=== PATIENT | female | born 1990 | race African-American/Black ===

== ENCOUNTER 2018-11-10 14:59 | Emergency (ER) | payer MEDICAID ==
[~2018-11-10] VITALS: Ht 154.9 cm; Wt 86.2 kg
[2018-11-10 15:07] VITALS: BP 153/87
--- NOTE | 2018-11-10 16:07 | NUR ---
PT AMBULATED TO BED 05.
--- NOTE | 2018-11-10 16:08 | NUR ---
BIB SELF. AAOX4. C/O CELLULITIS ON THE BACK OF THE NECK X 2 WEEKS. PT WENT TO PRIMARY PHYSICIAN ON 11/08 AND WAS PRESCRIBED ANTIBIOTIC SULFAMETHOXAZOLE-TMP DS. PT STATES CLEAR DRAINAGE NOTED SUNDAY. OPEN WOUND TO THE BACK OF THE NECK. PT STATES NO PAIN. AFEBRILE. DENIES N/V/D. HOB UP. BED SIDE RAILS UP X1. ON LOW BED POSITION, LOCKED. ER MADE AWARE OF PT STATUS.
--- NOTE | 2018-11-10 18:27 | NUR ---
Dr. Marie evaluating patient at bedside.
[2018-11-10] MEDS ORDERED: NEOMYCIN/POLYMYXIN/BACITRACIN 0.9 GM/1 PKT TP ONE (18:35)
[2018-11-10] MEDS ORDERED: CLINDAMYCIN 600 MG/4 ML VIAL IM ONE (18:35)
[2018-11-10] MEDS ORDERED: KETOROLAC 60 MG/2 ML VIAL IM ONE (18:35)
[2018-11-10] MEDS ORDERED: LEVOFLOXACIN 500 MG TAB PO ONE (18:35)
--- NOTE | 2018-11-10 18:55 | NUR ---
WOUND CULTURE OBTAINED ORDERED TO THE BACK OF NECK.
[2018-11-10 19:12] VITALS: BP 142/94
--- NOTE | 2018-11-10 19:12 | NUR ---
DISCHARGE INSTRUCTIONS. GIVEN. NO DRAINAGE. NO ABSCESS PAIN. INSTRUCTED ON AFTER CARE AND WHEN TO F/U WITH PCP. GIVEN RX FOR MOTRINE AND CLINDAMYCIN. SIDE EFFECTS EXPLAINED. PT VERBALLIZED UNDERSTANDING OF DC INSTRUCTION. ALL QUESTIONS ANSWERED.
== END 2018-11-10 19:12 | disposition home or self-care (01) ==
LOC: MED 14:59
DX: L02.13 Carbuncle of neck (principal); E11.9 Type 2 diabetes mellitus without complications
CPT/HCPCS: 87070; 87075; 87186; 87205; 96372; 99283; J1885; J3490

== ENCOUNTER 2019-10-10 12:06 | Emergency (ER) | payer MEDICAID ==
[~2019-10-10] VITALS: Ht 154.9 cm; Wt 91.2 kg
[2019-10-10 12:25] VITALS: BP 120/90
[2019-10-10 13:20] VITALS: BP 120/90
== END 2019-10-10 13:21 | disposition home or self-care (01) ==
LOC: MED 12:06
DX: B34.9 Viral infection, unspecified (principal); E11.9 Type 2 diabetes mellitus without complications; I10 Essential (primary) hypertension
CPT/HCPCS: 99283

== ENCOUNTER 2020-01-26 21:42 | Emergency (ER) | payer MEDICAID, SELFPAY ==
[~2020-01-26] VITALS: Ht 154.9 cm; Wt 91.2 kg
[2020-01-26 21:48] VITALS: BP 149/92
--- NOTE | 2020-01-26 21:55 | NUR ---
PT AMBULATED TO BED 04 WITH STEADY GAIT.
--- NOTE | 2020-01-26 21:59 | NUR ---
ASKED PT FOR URINE SAMPLE, SHE STATED SHE WENT TO THE BATHROOM BEFORE COMING TO HOSPITAL AND CANNOT URINATE NOW AND WILL TRY IN A FEW MINS TO PROVIDE SAMPLE
--- NOTE | 2020-01-26 22:00 | NUR ---
PT RESTING IN BED IN POSITION OF COMFORT, BED LOW AND LOCKED, 2 SIDERAILS UP, VSS,WILL CONTINUE TO MONITOR
--- NOTE | 2020-01-26 22:39 | NUR ---
URINE DIP AND PREG DONE AND URINE SAMPLE LEFT IN DIRTY UTILITY FOR LAB TO TV HOST
--- NOTE | 2020-01-26 22:48 | NUR ---
29 Y/O FEMALE C/O BLOOD SUGAR IN THE HIGH 50'S THIS MORNING AND PT ATE HALF A BANANA, WENT TO BED FOR ABOUT AN HOUR AND RE TOOK BLOOD SUGAR AND IT WAS IN THE HIGH 60'S; C/O FEELING TIRED/SLEEPY ALL DAY. FINGERS AND TOES COLD; LACK ENERGY; DENIES PAIN ; PMH:DMI/ANXIETY NKA
--- NOTE | 2020-01-26 23:00 | NUR ---
LAB AT BEDSIDE
--- NOTE | 2020-01-26 23:00 | NUR ---
PT PLACED IN GOWN
[2020-01-26 23:10] LABS: APPEARANCE,URINE CLEAR (CLEAR); BILIRUBIN,URINE NEGATIVE (NEGATIVE); BLOOD, URINE 1+ (NEGATIVE); COLOR,URINE YELLOW (YELLOW); LEUKOCYTE ESTERASE ,URINE NEGATIVE (NEGATIVE); NITRITE, URINE NEGATIVE (NEGATIVE); UGLUCOSE NEGATIVE (NEGATIVE)
--- NOTE | 2020-01-26 23:10 | NUR ---
PT RESTING IN BED IN POSITION OF COMFORT, BED LOW AND LOCKED, 2 SIDERAILS UP, VSS,WILL CONTINUE TO MONITOR
--- NOTE | 2020-01-26 23:13 | NUR ---
ORAL COVID SWAB DONE AND HANDED TO LAB PERSON
[2020-01-26 23:20] LABS: BASOPHILS # (AUTO) 0.1 K/uL (0.00-0.22); EOSINOPHILS # (AUTO) 0.2 K/uL (0-0.4); EOSINOPHILS % (AUTO) 2.5 % (0.0-4.0); HEMATOCRIT 29.8 % (36-48); HEMOGLOBIN 9.8 g/dL (12.0-16.0); LYMPHOCYTES # (AUTO) 2.8 K/uL (2.5-16.5); LYMPHOCYTES % (AUTO) 33.8 % (20.5-51.1); MEAN CORPUSCULAR HEMOGLOBIN 29 pg (27-31); MEAN CORPUSCULAR HGB CONC 33 g/dL (33-37); MEAN CORPUSCULAR VOLUME 89.3 fL (80-94); MONOCYTES # (AUTO) 0.5 K/uL (0.8-1.0); MONOCYTES % (AUTO) 6.5 % (1.7-9.3); NEUTROPHILS # (AUTO) 4.7 K/uL (1.8-7.7); NEUTROPHILS % (AUTO) 56.2 % (42.2-75.2); PLATELET COUNT (AUTO) 274 K/uL (140-450); RED BLOOD CELL COUNT(AUTO) 3.33 MIL/uL (4.20-5.40); RED CELL DISTRIBUTION WIDTH 13.2 % (11.6-13.7); WHITE BLOOD COUNT (AUTO) 8.4 K/uL (4.8-10.8)
[2020-01-26 23:25] LABS: WBC,URINE 0-5 /HPF (0-5)
[2020-01-26 23:35] LABS: ALBUMIN 2.3 g/dL (3.4-5.0); ANION GAP 10.1 (8-16); CARBON DIOXIDE 26.1 mmol/L (21-32); CREATININE 0.9 mg/dL (0.6-1.3); POTASSIUM 4.2 mmol/L (3.5-5.1); TOTAL BILIRUBIN 0.3 mg/dL (0.0-1.0)
--- NOTE | 2020-01-26 23:49 | NUR ---
PT IS CALM AND COMFORTABLY RESTING ON BED.
--- NOTE | 2020-01-27 00:01 | NUR ---
PT RESTING IN BED IN POSITION OF COMFORT, BED LOW AND LOCKED, 2 SIDERAILS UP, VSS,WILL CONTINUE TO MONITOR
[2020-01-27 00:19] VITALS: BP 149/92
--- NOTE | 2020-01-27 00:19 | NUR ---
Patient discharged with v/s stable BY . Written and verbal after care instructions given and explained BY . Patient alert, oriented and verbalized understanding of instructions. Ambulatory with steady gait. All questions addressed prior to discharge BY . ID band removed. Patient advised to follow up with PMD BY . Rx of MACROBID given. Patient educated on indication of medication including possible reaction and side effects BY . Opportunity to ask questions provided and answered BY .
== END 2020-01-27 00:19 | disposition home or self-care (01) ==
LOC: MED 21:42 → EEVIPCON 21:42 → MED 01-27 00:19
DX: N39.0 Urinary tract infection, site not specified (principal); Z20.828 Contact with and (suspected) exposure to other viral communicable diseases; E11.9 Type 2 diabetes mellitus without complications; I10 Essential (primary) hypertension
CPT/HCPCS: 36415; 71045; 80053; 81001; 81025; 85025; 87040; 87086; 99284; U0003

== ENCOUNTER 2020-08-13 20:00 | Emergency (ER) | payer MEDICAID, SELFPAY ==
[~2020-08-13] VITALS: Ht 160 cm; Wt 90.3 kg
[2020-08-13 20:21] VITALS: BP 144/87
--- NOTE | 2020-08-13 20:26 | NUR ---
PT AMBULATED TO BED 11 FROM TRIAGE
--- NOTE | 2020-08-13 20:35 | NUR ---
29 Y/O FEMALE BIB SELF WITH C/O H/A X YESTERDAY MORNING 0800. STATES SHE HAS BEEN TAKING OTC TYLENOL FOR PAIN RELIEF WITH INNEFECTIVE RESULTS. DENIES HAVING ANY SENSITIVITY TO LIGHT. REPORTS THAT THE PAIN DOES NOT RADIATE. SHE STATES THAT THE PAIN IS WORSE WITH EYE MOVEMENT. PERRLA BRISK 3MM, GRIB STRENGTH BILAT EQUALLY. REPORTS LMP ON 07/22/20. LAST BLOOD SUGAR 220 IN TRIAGE ROOM. PMHX: DM TYPE 1, HTN, ANXIETY, ANEMIA, ADHD, L KNEE SURGERY ON 05/2020. CORTES
--- NOTE | 2020-08-13 20:41 | NUR ---
CHRIS FERNANDEZ AT BEDSIDE EVALUATING PT.
[2020-08-13] MEDS ORDERED: diphenhydrAMINE 50 MG/ML VIAL IVP ONE (20:45)
[2020-08-13] MEDS ORDERED: METOCLOPRAMIDE 10 MG/2 ML INJ VIAL IVP ONE (20:45)
[2020-08-13] MEDS ORDERED: NACL 0.9% 1,000 ML IV ONE (20:45)
--- NOTE | 2020-08-13 21:10 | NUR ---
PT AMBULATED TO THE BATHROOM AND PROVIDED UA SAMPLE AT THIS TIME.
[2020-08-13 21:16] LABS: BASOPHILS % (AUTO) 0.5 % (0.0-2.0); EOSINOPHILS % (AUTO) 0.6 % (0.0-4.0); HEMATOCRIT 29.1 % (36-48); HEMOGLOBIN 9.6 g/dL (12.0-16.0); LYMPHOCYTES # (AUTO) 1.2 K/uL (2.5-16.5); LYMPHOCYTES % (AUTO) 31.3 % (20.5-51.1); MEAN CORPUSCULAR HEMOGLOBIN 29 pg (27-31); MEAN CORPUSCULAR HGB CONC 33 g/dL (33-37); MEAN CORPUSCULAR VOLUME 87.9 fL (80-94); MONOCYTES # (AUTO) 0.5 K/uL (0.8-1.0); MONOCYTES % (AUTO) 13.2 % (1.7-9.3); NEUTROPHILS # (AUTO) 2.1 K/uL (1.8-7.7); NEUTROPHILS % (AUTO) 54.4 % (42.2-75.2); PLATELET COUNT (AUTO) 190 K/uL (140-450); RED BLOOD CELL COUNT(AUTO) 3.31 MIL/uL (4.20-5.40); WHITE BLOOD COUNT (AUTO) 3.9 K/uL (4.8-10.8)
[2020-08-13 21:28] LABS: ALBUMIN 2.5 g/dL (3.4-5.0); ANION GAP 10.9 (8-16); CARBON DIOXIDE 25.4 mmol/L (21-32); CREATININE 1.1 mg/dL (0.6-1.3); POTASSIUM 4.3 mmol/L (3.5-5.1); TOTAL BILIRUBIN 0.2 mg/dL (0.0-1.0)
--- NOTE | 2020-08-13 21:37 | NUR ---
KIRAN SWAB COLLECTED AND SENT TO LAB.
--- NOTE | 2020-08-13 21:50 | NUR ---
ATTEMPTED IV INSERTION WAS UNSUCCESSFUL X3. CHARGE NURSE MADE AWARE WILL ATTEMPT.
--- NOTE | 2020-08-13 22:09 | NUR ---
ATTEMPTED IV INSERTION BY THIS RN AND PRIMARY RN, UNSUCCESSFUL X3. ERMD MADE AWARE AND STATED MEDICATION ROUTE WOULD BE CHANGED.
[2020-08-13] MEDS ORDERED: diphenhydrAMINE 50 MG/ML VIAL IM ONE (22:10)
[2020-08-13] MEDS ORDERED: METOCLOPRAMIDE 10 MG TAB PO ONE (22:10)
--- NOTE | 2020-08-13 22:33 | NUR ---
PT TAKEN TO CT VIA W/C ALL COVID PRECAUTIONS IN PLACE.
--- NOTE | 2020-08-13 22:39 | NUR ---
PT RETURNED FROM CT.
--- NOTE | 2020-08-13 22:56 | NUR ---
CHRIS FERNANDEZ AT BEDSIDE FOR RE-EVALUATION.
--- NOTE | 2020-08-13 23:07 | NUR ---
Patient discharged with v/s stable. Written and verbal after care instructions given and explained. Patient alert, oriented and verbalized understanding of instructions. Ambulatory with steady gait. All questions addressed prior to discharge. ID band removed. Patient advised to follow up with PMD. Rx of NORCO & REGLAN given. Patient educated on indication of medication including possible reaction and side effects. Opportunity to ask questions provided and answered.
[2020-08-13 23:08] VITALS: BP 144/77
[2020-08-14 01:25] LABS: APPEARANCE,URINE CLEAR (CLEAR); BILIRUBIN,URINE NEGATIVE (NEGATIVE); BLOOD, URINE 2+ (NEGATIVE); COLOR,URINE YELLOW (YELLOW); LEUKOCYTE ESTERASE ,URINE NEGATIVE (NEGATIVE); NITRITE, URINE NEGATIVE (NEGATIVE); UGLUCOSE TRACE (NEGATIVE)
[2020-08-14 01:47] LABS: RBC,URINE 0-5 /HPF (0-5); WBC,URINE 0-5 /HPF (0-5)
== END 2020-08-13 23:07 | disposition home or self-care (01) ==
LOC: MED 20:00
DX: U07.1 COVID-19 (principal); R51.9 Headache, unspecified; E11.65 Type 2 diabetes mellitus with hyperglycemia; E86.0 Dehydration; I10 Essential (primary) hypertension; Z98.890 Other specified postprocedural states
CPT/HCPCS: 36415; 70450; 80053; 81001; 81025; 85025; 87426; 99284; J1200; J8597; J2765

== ENCOUNTER 2021-04-04 19:20 | Emergency (ER) | payer MEDICAID, OTHER, SELFPAY ==
[~2021-04-04] VITALS: Ht 154.9 cm; Wt 88.0 kg
[2021-04-04 19:50] VITALS: BP 133/72
--- NOTE | 2021-04-04 19:53 | NUR ---
TO LOBBY A/W BED AMBULATORY
[2021-04-04] MEDS ORDERED: IBUP-2213 PO (20:42)
[2021-04-04] MEDS ORDERED: ONDA-24 PO (20:42)
[2021-04-04 23:00] VITALS: BP 133/72
--- NOTE | 2021-04-04 23:01 | NUR ---
Patient discharged with v/s stable. Written and verbal after care instructions given and explained. Patient verbalized understanding. Ambulatory with steady gait. All questions addressed prior to discharge. Advised to follow up with PMD.
== END 2021-04-04 21:38 | disposition home or self-care (01) ==
LOC: MED 19:20
DX: B34.9 Viral infection, unspecified (principal)
CPT/HCPCS: 99281